=== PATIENT | male | born 1990 | race Caucasian/White ===

== ENCOUNTER 2018-01-02 18:24 | Inpatient (IN) | payer BC, OTHER ==
[~2018-01-02] VITALS: Ht 180.3 cm; Wt 93.0 kg
--- NOTE | 2018-01-03 00:35 | NUR ---
PRE-ADMISSION NOTE Pt seen in intake office. Pt was severely intoxicated and not experiencing any s/s of withdrawal. Pt was unkempt and disheveled. Pt had a steady gait and was A/O X 4. V/S: T:98.5, P:113, RR:18, SPO2:96, BP:156/101. Pt is expectable for admission to the unit.
[2018-01-03] MEDS ORDERED: HYDROXYZINE PAMOATE 25 MG CAPSULE PO PRN (01:00)
[2018-01-03] MEDS ORDERED: MAGNESIUM HYDROXIDE 30 ML LIQUID UDC PO PRN (01:00)
[2018-01-03] MEDS ORDERED: DICYCLOMINE HCL 20 MG TABLET PO PRN (01:00)
[2018-01-03] MEDS ORDERED: IBUPROFEN 400 MG TABLET PO PRN (01:00)
[2018-01-03] MEDS ORDERED: MIRALAX 17 GM POWD.PACK PO PRN (01:00)
[2018-01-03] MEDS ORDERED: LOPERAMIDE HCL 2 MG CAPSULE PO PRN ×2 (01:00)
[2018-01-03] MEDS ORDERED: diphenhydrAMINE 50 MG CAPSULE PO PRN (01:00)
[2018-01-03] MEDS ORDERED: MAG HYDROX/AL HYDROX/SIMETH 30 ML LIQUID UDC PO PRN (01:00)
[2018-01-03] MEDS ORDERED: ACETAMINOPHEN 325 MG TABLET PO PRN (01:00)
[2018-01-03] MEDS ORDERED: BUPRENORPHINE HCL 2 MG TAB.SUBL SL PRN (01:00)
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
[2018-01-03] MEDS: ONDANSETRON ODT 4 MG TAB.RAPDIS SL PRN ×2 (01:32→13:51)
--- NOTE | 2018-01-03 01:32 | NUR ---
PRN ZOFRAN ADMINISTRATION Zofran 4mg SL given for nausea w/ emesis. Pt has had 2 cases of non-projectile non-coffee ground emesis. Will reassess pt in 1 hr.
--- NOTE | 2018-01-03 02:32 | NUR ---
PRN ZOFRAN REASSESSMENT Pt continues to have nausea w/ emesis. Will administer Zofran IM.
[2018-01-03 03:02] LABS: *AMPHETAMINE, URINE POSITIVE (NEGATIVE); *BARBITURATE, URINE NEGATIVE (NEGATIVE); *CANNABINOID, URINE POSITIVE (NEGATIVE); *COCCAINE, URINE NEGATIVE (NEGATIVE); *OPIATE, URINE POSITIVE (NEGATIVE); *PHENCYCLIDINE SCREEN,URINE NEGATIVE (NEGATIVE)
[2018-01-03] MEDS: ONDANSETRON 4 MG/2 ML VIAL IM PRN ×2 (03:18→10:46)
--- NOTE | 2018-01-03 03:18 | NUR ---
PRN ZOFRAN ADMINISTRATION Zofran 4mg IM given for nausea w/ emesis. Will reassess pt in 30 min.
[2018-01-03] MEDS ORDERED: LORAZEPAM 1 MG TABLET PO PRN ×2 (03:30)
[2018-01-03] MEDS ORDERED: LORAZEPAM 2 MG/1 ML VIAL IM PRN (03:30)
--- NOTE | 2018-01-03 03:48 | NUR ---
PRN ZOFRAN REASSESSMENT Pt states not feeling nauseous any longer and no more bouts of emesis. Will continue to monitor pt.
[2018-01-03 04:07] VITALS: BP 139/82
--- NOTE | 2018-01-03 04:13 | NUR ---
CIWA ASSESSMENT CIWA 17. Pt is presenting w/ anxiety, agitation, restlessness, sweats, and tremors. V/S: T: 98.5, P:94, RR:18, SPO2;98, BP:139/82.
--- NOTE | 2018-01-03 04:30 | NUR ---
PRN ATIVAN AND CLONIDINE ADMINISTRATION Ativan 2mg and Clonidine 0.1mg given for anxiety and agitation. CIWA 17. Will reassess pt in 1 hr.
[2018-01-03] MEDS: CLONIDINE HCL 0.1 MG TABLET PO PRN (04:31)
--- NOTE | 2018-01-03 05:30 | NUR ---
PRN ATIVAN AND CLONIDINE REASSESSMENT Pt states that anxiety and agitation has subsided, but he can still feel restless and has racing thoughts. Pt states "I feel tired and will probably fall asleep after a smoke". Will continue to monitor pt.
[2018-01-03] MEDS: METHOCARBAMOL 750 MG TABLET PO PRN (05:52)
--- NOTE | 2018-01-03 05:52 | NUR ---
PRN ROBAXIN ADMINISTRATION Robaxin 750mg given for body aches. Pt states "my whole body hurts and its why I can't relax and fall asleep". Will reassess pt in 1 hr.
--- NOTE | 2018-01-03 06:52 | NUR ---
PRN RADHA REASSESSMENT Pt is in bed w/ his eyes closed. Pt's respirations are unlabored and even.
--- NOTE | 2018-01-03 07:14 | NUR ---
END OF SHIFT NOTE Endorsed pt to oncoming nurse. Pt is a 27 y/o male A/O to person, place, time, and purpose. Pt was admitted for medically supervised withdrawal from Benzodiazepines and Opiates. Pt also has a Methamphetamine use Hx. Pt was intoxicated upon admission, but began to present w/ nausea, anxiety, agitation, and body aches. PRN Zofran SL, Zofran IM, Ativan, Clonidine, and Robaxin were given and noted effective. Pt denies any S/I or H/I. Pts fluid intake was 1050ml and he slept for 0 hrs. Last CIWA 17 @ 0400. COWS assessment not performed. Call light is within reach.
--- NOTE | 2018-01-03 07:40 | NUR ---
START OF SHIFT NOTE Received report from night nurse, 27 year old male admitted for Heroin/Benzo/ Meth withdrawal and patient currently not on any taper but PRN'S available for increased s/s of withdrawal. Per endorsement patient received PRN Zofran SL/Zofran IM, Ativan, Clonidine, Robaxin, and last CIWA-17. Received patient alert awake oriented x4, pacing in the hallway, anxious, agitated, restless, fatigue, nausea, chills, runny nose, bilateral hand tremors noted. All safety measures in place call light within reach. Will cont to monitor.
[2018-01-03 08:00] VITALS: BP 133/91
--- NOTE | 2018-01-03 09:24 | NUR ---
CIWA/COWS ASSESSMENT/PRN ATIVAN SUBUTEX CIWA-14, COWS-14, Patient presented with s/s of withdrawal such as nausea, difficulty sitting still, chills, anxiety, agitation, restless, stomach cramps, heart burn, sweats, bilateral hand tremors. PRN Ativan 1mg PO and Subutex 4mg SL administered as ordered. Will cont to monitor and reassess. Addendum: 01/03/18 at 1107 by JOE RODRÍGUEZ LVN correction- COWS score was-15
--- NOTE | 2018-01-03 10:04 | NUR ---
COWS REASSESSMENT COWS-11, Patient reported Subutex was effective in controlling s/s of withdrawal.
--- NOTE | 2018-01-03 10:24 | NUR ---
CIWA REASSESSMENT CIWA- 12, patient reported feeling less anxious, agitated, and restless, Ativan was effective in controlling s/s of withdrawal.
--- NOTE | 2018-01-03 10:46 | NUR ---
PRN ZOFRAN/MAALOX Patient reported emesis x1, and heartburn. Patient provided with non pharmacological intervention with no relief. PRN Zofran IM, Maalox administered as ordered. Will cont to monitor and reassess.
[2018-01-03] MEDS ORDERED: 4 DAY TAPER BUPRENORPHINE -SERENITY PROTOCOL SL PRN (11:15)
[2018-01-03] MEDS ORDERED: 5 DAY TAPER OF LORAZEPAM -SERENITY PROTOCOL PO PRN (11:15)
--- NOTE | 2018-01-03 11:16 | NUR ---
ZOFRAN AND MAALOX REASSESSMENT Patient reported nausea improved, no emesis, and heart burn subsided.
[2018-01-03 12:00] VITALS: BP 144/90
[2018-01-03] MEDS ORDERED: OXCA150T5 PO (12:21)
[2018-01-03] MEDS ORDERED: GABA600T2 PO (12:21)
[2018-01-03] MEDS ORDERED: BUPR300T52 PO (12:21)
[2018-01-03] MEDS ORDERED: BUPRENORPHINE HCL 2 MG TAB.SUBL SL SCH (13:00)
[2018-01-03] MEDS ORDERED: LORAZEPAM 1 MG TABLET PO SCH (13:00)
[2018-01-03] MEDS: GABAPENTIN 300 MG CAPSULE PO SCH ×2 (13:07→16:37)
--- NOTE | 2018-01-03 13:08 | NUR ---
CIWA/COWS ASSESSMENT CIWA-13, COWS-13, Patient continues to exhibited s/s of withdrawal such as runny nose, fatigue, labile facial expression, nausea, difficulty sitting still, chills, anxiety, agitation, restless, stomach cramps, sweats, bilateral hand tremors. Patient was given scheduled medications.
--- NOTE | 2018-01-03 13:51 | NUR ---
Zofran 4 mg ODT given: Patient had x 2 episodes of emesis while in smoking patio. Patient was discouraged to smoke if he feels nauseated. Patient was medicated with Zofran 4 mg ODT as ordered. Will monitor for effectiveness.
--- NOTE | 2018-01-03 14:15 | NUR ---
AVINASH REASSESSMENT Patient is sleeping calmly in his room, Avinash noted effective. Breathing normal no SOB noted. All safety measures in place.
[2018-01-03 16:00] VITALS: BP 134/74
[2018-01-03] MEDS: LORAZEPAM 1 MG TABLET PO SCH ×2 (16:37→20:55)
[2018-01-03] MEDS: OXCARBAZEPINE 150 MG TABLET PO SCH (16:37)
--- NOTE | 2018-01-03 16:37 | NUR ---
CIWA/COWS ASSESSMENT CIWA-11, COWS-11, Patient continues to exhibited s/s of withdrawal such as labile facial expression, fatigue, nausea, chills, anxiety, agitation, restless, anhedonia, dysphoria, bilateral hand tremors. Patient was given scheduled medications.
--- NOTE | 2018-01-03 19:08 | NUR ---
END OF SHIFT NOTE Gave report to night nurse, patient started on Subutex and Ativan taper tolerated well. During shift patient received PRN Zofran x2 IM and SL, Ativan 1mg PO, Subutex 4mg SL, Maalox noted to be effective. Patient stated Subutex is making him vomiting MD notified. MD discontinued scheduled Subutex taper but PRN'S available if needed. Patient presented with pacing in the hallway, agitated, anxious, restless, emesis, nauseated, sweats, chills, runny nose, heart burn, bilateral hand tremors. Patient able to consumed 100% of his meals. Patient is currently resting in his room comfortably, breathing normal no SOB noted. Encourage PO fluids as tolerated. All safety measures in place. patient endorse to night nurse in stable condition.
--- NOTE | 2018-01-03 19:50 | NUR ---
START OF SHIFT NOTE Rcvd report from outgoing nurse. Pt is a 27 y/o male A/O to person, place, time, and purpose. Pt was admitted for medically supervised withdrawal from Xanax and Heroin. Pt is on a 5 day Ativan taper and was on a 4 day Subutex taper. Pt has been presenting w/ body aches, nausea w/ emesis, sweats, chills, flushing, tremors, anxiety, agitation, irritability, and a flat affect. PRN Zofran was given for nausea w/ emesis. PRN Maalox was given for heartburn. PRN Ativan was given for elevated CIWA. All noted effective by outgoing nurse. PRN Subutex was given and pt became nauseous and had a bout of emesis. Pt was taken off Subutex taper per MD. Last CIWA 11 and COWS 11 @ 1600. Call light is within reach. Pt will continue to be monitored and needs met.
[2018-01-03 19:51] LABS: ETHANOL < 3 MG/DL (0-0)
[2018-01-03 19:56] LABS: ALANINE AMINOTRANSFERASE 138 U/L (16-63); ALKALINE PHOSPHATASE 64 U/L (50-136); AMYLASE 33 U/L (25-115); ASPARTATE AMINOTRANSFERASE 191 U/L (15-37); BASOPHILS # (AUTO) 0.1 K/uL (0.0-8.0); BASOPHILS % (AUTO) 0.8 % (0.0-2.0); BILIRUBIN,TOTAL 0.7 mg/dL (0.2-1.0); CARBON DIOXIDE 32 mmol/L (21-32); CHLORIDE 98 mmol/L (98-107); CREATININE 1.2 mg/dL (0.6-1.3); EOSINOPHILS # (AUTO) 0.3 K/uL (0.0-0.7); EOSINOPHILS % (AUTO) 4.9 % (0.0-7.0); GLUCOSE 92 mg/dL (74-106); HEMATOCRIT 43.2 % (36.7-47.1); HEMOGLOBIN 14.9 g/dL (12.5-16.3); LIPASE 144 U/L (73-393); LYMPHOCYTES % (AUTO) 30.8 % (20.5-51.5); MEAN CORPUSCULAR HEMOGLOBIN 31.8 uug (23.8-33.4); MEAN CORPUSCULAR HGB CONC 34 g/dL (32.5-36.3); MEAN CORPUSCULAR VOLUME 92.3 fL (73.0-96.2); MONOCYTES # (AUTO) 0.6 K/uL (2.0-10.0); MONOCYTES % (AUTO) 9.2 % (0.0-11.0); NEUTROPHILS # (AUTO) 3.6 K/uL (1.8-8.9); NEUTROPHILS % (AUTO) 54.3 % (38.5-71.5); PLATELET COUNT (AUTO) 151 K/uL (152-348); POTASSIUM 3.4 mmol/L (3.5-5.1); RED BLOOD CELL COUNT(AUTO) 4.68 MIL/uL (4.06-5.63); TOTAL PROTEIN, SERUM 7.2 g/dL (6.4-8.2); UREA NITROGEN, BLOOD 11 mg/dL (7-18); WHITE BLOOD COUNT (AUTO) 6.6 K/uL (3.6-10.2)
--- NOTE | 2018-01-03 20:07 | NUR ---
CIWA AND COWS ASSESSMENT CIWA 16 and COWS 11. Pt has been presenting w/ body aches, nausea w/ emesis, sweats, chills, flushing, tremors, anxiety, agitation, irritability, and a flat affect. PRN Zofran was given for nausea w/ emesis.V/S: T:98.2, P:86, RR:14, SPO2:98, BP:136/72.
[2018-01-03 20:28] VITALS: BP 136/72
[2018-01-04 00:10] VITALS: BP 134/63
--- NOTE | 2018-01-04 00:14 | NUR ---
CIWA AND COWS DEFERRED. V/S ASSESSMENT Pt is in bed w/ his eyes closed. V/S: T:98.3, P:84, RR:16, SPO2:98, BP:134/63.
--- NOTE | 2018-01-04 04:08 | NUR ---
CIWA AND COWS DEFERRED. V/S REFUSED Pt is in bed w/ his eyes closed. Pt's respirations are unlabored and even.
--- NOTE | 2018-01-04 07:11 | NUR ---
END OF SHIFT NOTE Endorsed pt to oncoming nurse. Pt is a 27 y/o male A/O to person, place, time, and purpose. Pt was admitted for medically supervised withdrawal from Xanax and Heroin. Pt completed day 1 of a 5 day Ativan taper. Pt continues presenting w/ body aches, nausea w/ emesis, sweats, chills, flushing, tremors, anxiety, agitation, irritability, and a flat affect. Pt denies S/I and H/I. PRN medications were given current shift. Pts fluid intake was 500ml and he slept for 9hrs. Last CIWA 16 and COWS 11 @ 1999. Call light is within reach.
[2018-01-04 08:00] VITALS: BP 134/70
--- NOTE | 2018-01-04 08:15 | NUR ---
START OF SHIFT: Received Pt A/O X 4 laying in bed. He reports nausea,anxiety,restlessness,irritability and body aches. COWS 9 CIWA 9 Ativan taper in progress to manage s/s of w/d. PRN Zofran ODT and PRN Robaxin given as ordered to manage nausea and body aches. Encouraged increased fluids to assist in facilitating detox process. Encouraged group attendance to improve coping skills and prevent relapse. Will continue to monitor and manage s/s of w/d.
[2018-01-04] MEDS ORDERED: TUBERCULIN,PURIF.PROT.DERIV. 5 TU/0.1 ML TEST ID ONE (09:00)
[2018-01-04] MEDS ORDERED: POTASSIUM CHLORIDE 20 MEQ TAB.PRT.SR PO ONE (09:00)
[2018-01-04] MEDS ORDERED: BUPRENORPHINE HCL 2 MG TAB.SUBL SL SCH (09:00)
[2018-01-04] MEDS: LORAZEPAM 1 MG TABLET PO SCH ×4 (09:15→21:19)
[2018-01-04] MEDS: OXCARBAZEPINE 150 MG TABLET PO SCH ×2 (09:16→16:47)
[2018-01-04] MEDS: METHOCARBAMOL 750 MG TABLET PO PRN ×2 (09:16→21:19)
[2018-01-04] MEDS: GABAPENTIN 300 MG CAPSULE PO SCH ×3 (09:16→16:47)
[2018-01-04] MEDS: buPROPion XL 150 MG TAB.SR.24H PO SCH (09:17)
[2018-01-04] MEDS: ONDANSETRON ODT 4 MG TAB.RAPDIS SL PRN ×2 (09:19→23:00)
--- NOTE | 2018-01-04 10:10 | NUR ---
Therapist prompted client to attend group therapy sessions and client stated that he will be attending.
[2018-01-04 12:00] VITALS: BP 112/65
--- NOTE | 2018-01-04 12:15 | NUR ---
COWS 13 CIWA 11 Subutex 4mg Sl administered as ordered to manage s/s of w/d. He reports anxiety,chills,sweats,body aches and fatigue.
[2018-01-04] MEDS ORDERED: 3 DAY TAPER BUPRENORPHINE -SERENITY PROTOCOL SL PRN (13:00)
[2018-01-04] MEDS: BUPRENORPHINE HCL 2 MG TAB.SUBL SL SCH ×2 (13:37→21:21)
[2018-01-04 16:00] VITALS: BP 129/71
--- NOTE | 2018-01-04 18:38 | NUR ---
END OF SHIFT: Pt was started on Subutex taper this afternoon and Ativan taper continues to manage s/s of w/d which include anxiety,restlessness,body aches,nausea and irritability. Last COWS 11 CIWA 10. He stayed in bed most of shift and was compliant with increased fluids. He refused PPD. He stated he felt too bad to go to groups today but will try to attend tomorrow. Will pass shift report to oncoming night nurse.
[2018-01-04 20:00] VITALS: BP 127/70
--- NOTE | 2018-01-04 20:00 | NUR ---
Start of shift Patient is a 27 year old male admitted on 01/03/2018. Patient is here at [facility] for medically supervision of Xanax and heroin withdrawal. Patient is on a 4 day Subutex taper and 5 day Ativan taper. Patients last COWS=11 and CIWA=10. Per endorsement patient had Zofran and Robaxin and it was well tolerated. Medication was effective per nurse staff. Patient is on fall and seizure precautions. Upon rounds patient was noted in room lying in bed. Reviewed 2100 medications with patient and he verbalized understanding and asked for PRN Robaxin. Patient presents with withdrawal symptoms as follow: anxiety, agitation, body aches, sweats, tremors and nausea. Patient was noted withdrawn, depressed, and poor eye contact. Respirations are even and unlabored. Patient denies any pain. Safety measures in place, bed locked in low position, side rails up x2, and call light within reach. Will continue to monitor.
--- NOTE | 2018-01-04 20:00 | NUR ---
CIWA and COWS Assessment Patient is presenting with symptoms of withdrawal as follow: sweats, body aches, anxiety, agitation and nausea. Patients CIWA= 9 and COWS= 10. Respirations are even and unlabored. Safety measures are in place and will continue to monitor.
--- NOTE | 2018-01-04 21:19 | NUR ---
PRN Robaxin 750 mg Patient is experiencing body aches. Robaxin 750 mg was administered. Respirations are even and unlabored. Patient tolerated well medication. Safety measures are in place and will continue to monitor.
--- NOTE | 2018-01-04 22:20 | NUR ---
CIWA /COWS/Robaxin 750 mg Reassessment Patient is presenting with symptoms of withdrawal as follow: sweats, body aches, anxiety, agitation and nausea and vomiting. Patient vomited medication Ativan, Subutex, and Robaxin. Patients CIWA= 16 and COWS= 15. Charge nurse and MD notified. Medication was not effective. Respirations are even and unlabored. Safety measures are in place and will continue to monitor.
[2018-01-04] MEDS ORDERED: LORAZEPAM 1 MG TABLET PO ONE (23:00)
[2018-01-04] MEDS ORDERED: BUPRENORPHINE HCL 2 MG TAB.SUBL SL ONE (23:00)
--- NOTE | 2018-01-04 23:00 | NUR ---
One time order Ativan 1mg and PRN Zofran Patient vomited medication and MD placed a onetime dose of Ativan 1mg and Subutex 2mg. Patient decline Subutex 2mg. Ativan 1mg and Zofran was administered and tolerated well. Respirations are even and unlabored. Safety measures are in place and will continue to monitor.
[2018-01-05] VITALS: BP 113/77
--- NOTE | 2018-01-05 | NUR ---
CIWA and COWS Deferred Patient was noted in bed resting with eyes closed, breathing even and unlabored. Per protocol COWS and CIWA is to be assessed while awake. Safety measures in place, bed locked in low position, side rails up x2, and call light within reach. Will continue to monitor.
--- NOTE | 2018-01-05 | NUR ---
PRN Zofran Reassessment Patient noted in bed lying with eyes closed. Medication noted to be effective. Patient did not experience another episode of emesis. Respirations are even and unlabored. Safety measures are in place and will continue to monitor.
[2018-01-05 04:00] VITALS: BP 108/86
--- NOTE | 2018-01-05 04:00 | NUR ---
CIWA and COWS Deferred Patient was noted in bed resting with eyes closed, breathing even and unlabored. Per protocol COWS and CIWA is to be assessed while awake. Safety measures in place. Will continue to monitor.
[2018-01-05 04:08] LABS: HEPATITIS B SURFACE AG Negative (Negative)
--- NOTE | 2018-01-05 07:19 | NUR ---
End of shift Patient is a 27 year old male admitted on 01/03/2018. Patient is here at [facility] for medically supervision of Xanax and heroin withdrawal. Patient is on a 4 day Subutex taper and 5 day Ativan taper. Patients last COWS=15 and CIWA=16 at 2220. Patient had one episode of emesis after 2100 medication administration. MD was notified and he ordered a onetime dose of Ativan 1mg and Subutex 2mg.Ativan was given and Subutex was decline per patient. Patient had PRN Zofran and Robaxin and it was well tolerated. Medication was noted to be effective. Patient had low Potassium of 3.4 and will endorse to nurse staff to follow up. Patient is on fall and seizure precautions. Patient slept for 8 hours and had a total intake of 2,850 ml. Patient voided x1 and had no bowel movements. Respirations are even and unlabored. Safety measures in place, bed locked in low position, side rails up x2, and call light within reach. Will endorse to day shift.
--- NOTE | 2018-01-05 07:30 | NUR ---
Start of Shift Egg Candler received report on 27 year old male admitted to [facility] on 01/03/18 for medical management of Benzodiazepine and Opiate withdrawals. Pt endorses NKA, full code and regular diet. PMH of acute renal failure and Hepatitis C. Pt currently on a Subutex and Ativan taper with last CIWA 16 and COWS 15, per NOC report. Pt was administered Robaxin(myalgia) and Zofran(emesis) as PRN medications on NOC, per report. Egg Candler encounters pt in hallway. Pt is A/O x4 and makes his needs known. Linear thought process and clear speech pattern. Blunted affect and depressed mood. Pt complains of nausea, myalgia, chills, anxiety and pt is diaphoretic and tremulous. Bed in low position with wheels locked and side rails up x2. Will continue to monitor, support and encourage according to plan of care.
[2018-01-05 08:00] VITALS: BP 114/86
--- NOTE | 2018-01-05 08:49 | NUR ---
Therapist prompted client to attend group therapy.
[2018-01-05] MEDS ORDERED: BUPRENORPHINE HCL 2 MG TAB.SUBL SL SCH (09:00)
[2018-01-05] MEDS ORDERED: POTASSIUM CHLORIDE 20 MEQ TAB.PRT.SR PO ONE (09:00)
[2018-01-05] MEDS: ONDANSETRON ODT 4 MG TAB.RAPDIS SL PRN (09:00)
--- NOTE | 2018-01-05 09:00 | NUR ---
PRN Zofran Pt requests medication prior to medication. No emesis noted. Business Continuity Global Director administered Zofran per MD order with pt tolerating well. Will continue to monitor, support and encourage according to plan of care.
--- NOTE | 2018-01-05 09:30 | NUR ---
CIWA 14/COWS 16 Pt is diaphoretic, tremulous, anxious and restless with complaints of nausea, chills and myalgia. Pt with a restricted affect and depressed mood. Will continue to monitor, support and encourage according to plan of care.
--- NOTE | 2018-01-05 09:30 | NUR ---
PRN Re-Assessment Pt endorse relief nausea and has had no emesis. Will administer medications as ordered, per pt request. Will continue to monitor, support and encourage according to plan of care.
[2018-01-05] MEDS: OXCARBAZEPINE 150 MG TABLET PO SCH ×2 (09:52→17:28)
[2018-01-05] MEDS: BUPRENORPHINE HCL 2 MG TAB.SUBL SL SCH ×2 (09:53→20:43)
[2018-01-05] MEDS: GABAPENTIN 300 MG CAPSULE PO SCH ×3 (09:53→17:28)
[2018-01-05] MEDS: buPROPion XL 150 MG TAB.SR.24H PO SCH (09:53)
[2018-01-05] MEDS: LORAZEPAM 1 MG TABLET PO SCH ×3 (09:53→20:43)
[2018-01-05 12:00] VITALS: BP 134/67
--- NOTE | 2018-01-05 12:00 | NUR ---
ANASTASIYAWA 12/COWS 14 Pt is diaphoretic, tremulous, anxious, restless with piloerection of the skin and complains of nausea, myalgia and chills. Will continue to monitor, support and encourage according to plan of care.
--- NOTE | 2018-01-05 13:44 | NUR ---
Therapist prompted client to attend all group therapy sessions.
[2018-01-05] MEDS: METHOCARBAMOL 750 MG TABLET PO PRN (15:26)
--- NOTE | 2018-01-05 15:26 | NUR ---
MARIA DE JESUS Figueroa Pt complains of myalgia and requests medication. Hvac Instructor administered medication per order with pt tolerating well. Will continue to monitor, support and encourage according to plan of care
--- NOTE | 2018-01-05 16:26 | NUR ---
PRN Re-Assessment Pt endorse relief, stating, " I am feeling better." Will continue to monitor, support and encourage according to plan of care.
[2018-01-05 16:30] VITALS: BP 147/89
--- NOTE | 2018-01-05 16:30 | NUR ---
CIWA 9/COWS 13 Pt is diaphoretic, tremulous, anxious and restless with complaints of myalgia, chills and nausea. Will continue to monitor, support and encourage according to plan of care.
--- NOTE | 2018-01-05 19:27 | NUR ---
End of Shift Embossed Or Impressed Lettering Painter provided report on 27 year old male admitted to [facility] on 01/03/18 for medical management of Benzodiazepine and Opiate withdrawals. Pt endorses NKA, full code and regular diet. PMH of acute renal failure and Hepatitis C. Pt currently on a Subutex and Ativan taper with last CIWA 9 and COWS 13. Pt was administered Robaxin(myalgia) and Zofran(nausea) as PRN medications. Pt is A/O x4 and makes his needs known. [place] and slow thought process, pre-occupied, and clear speech pattern. Blunted affect and depressed mood. Pt complains of nausea, myalgia, chills, anxiety and pt is diaphoretic and tremulous. Pt has attended group and participates in treatment plan. Bed in low position with wheels locked and side rails up x2.
--- NOTE | 2018-01-05 19:30 | NUR ---
Start of Shift Note Received a 27 y/o male px, admitted for medically supervised withdrawal from Heroin and Xanax. Px is also using methamphetamine. He was placed on 4 day Ativan taper and 4 day Subutex taper started on 01/04/2018. Px is tolerating them. Last reported COWS 13 and CIWA 9 by AM shift nurse. During the rounds at 1930, px is awake on bed in right side lying position. Px appears anxious and depressed. He has flat affect and poor eye contact. He is disheveled and unshaven. Few snacks and drinks noted on top of the bed side table. Px stated that his anxiety is 9/10. He also complains of generalized body aches of 7/10, sweats, and stuffy nose. Bilateral hand tremors are noted. Bed on lowest position, side rails up 2x and call light within reach. Well continue to monitor
[2018-01-05 20:00] VITALS: BP 148/85
--- NOTE | 2018-01-05 20:00 | NUR ---
COWS 11 and CIWA 16 Upon assessment, ox appears anxious and depressed. He has flat affect and poor eye contact. Px stated that his anxiety is 9/10. He also complains of generalized body aches of 7/10, sweats, and stuffy nose. Bilateral hand tremors are noted. OH= 98. will continue to monitor
[2018-01-05] MEDS: CLONIDINE HCL 0.1 MG TABLET PO PRN (20:43)
--- NOTE | 2018-01-05 20:43 | NUR ---
PRN Clonidine Px received Clonidine 0.1 mg PO for increased anxiety. will continue to monitor
--- NOTE | 2018-01-05 21:45 | NUR ---
PRN Clonidine Reassessment Px stated that his anxiety improved a little bit form 12/28 to 10/27. will continue to monitor
[2018-01-06] VITALS: BP 132/80
--- NOTE | 2018-01-06 | NUR ---
COWS and CIWA deferred COWS and CIWA deferred due to the px is asleep. To assess if the px is awake per doctor's order. will continue to monitor
--- NOTE | 2018-01-06 03:00 | NUR ---
COWS 12 and CIWA 15 Px woke up, still appears anxious and depressed. He has flat affect and poor eye contact. Px stated that his anxiety is 9/10. Generalized body aches of 7/10, sweats, and stuffy nose. Bilateral hand tremors are noted. VA= 92. will continue to monitor
[2018-01-06] MEDS: METHOCARBAMOL 750 MG TABLET PO PRN ×2 (03:26→20:15)
--- NOTE | 2018-01-06 03:26 | NUR ---
PRN Robaxin and Vistaril Px received Robaxin 750 mg PO for body aches of 7/10 and Vistaril 50 mg PO for anxiety. will continue to monitor
[2018-01-06 04:00] VITALS: BP 129/83
--- NOTE | 2018-01-06 04:00 | NUR ---
COWS 12 and CIWA 15 On assessment. Px still appears anxious and depressed. He has flat affect and poor eye contact. Px stated that his anxiety is 7/10. Generalized body aches of 7/10, sweats, and stuffy nose. Bilateral hand tremors are noted. will continue to monitor
--- NOTE | 2018-01-06 04:30 | NUR ---
MARIA DE JESUS Figueroa and Vistaril reassessment On assessment, px is still awake but about to sleep. He is on bed in left side lying position. He states that his body aches from 7/10 to 4-5/10 and his anxiety improved from 7/10 to 5/10. will continue to monitor
--- NOTE | 2018-01-06 07:05 | NUR ---
End of Shift Note During the shift at 2042, px received Clonidine 0.1 mg PO for increased anxiety. It was effective. At 325, px woke up and received Robaxin 750 mg PO for body aches of 7/10 and Vistaril 50 mg PO for anxiety. They were effective. Last COWS 12 and CIWA 15. Oral intake of 1000 ml, voided 3x, No BM. Px slept for 5.5 hours. Bed on lowest position, side rails up 2x and call light within reach. Px endorsed to AM shift nurse.
--- NOTE | 2018-01-06 07:30 | NUR ---
Start of Shift Spark Plug Tester received report on 27 year old male admitted to [facility] on 01/03/18 for medical management of Benzodiazepine and Opiate withdrawals. Pt endorses NKA, full code and regular diet. PMH of acute renal failure and Hepatitis C. Pt currently on a Subutex and Ativan taper with last CIWA 15 and COWS 12, per NOC report. Pt was administered Robaxin(myalgia), Vistaril(anxiety) and Clonidine(anxiety) as PRN medications on NOC, per report. Spark Plug Tester encounters pt in pts room with pt resting with eyes closed. Even and unlabored respirations noted. Bed in low position with wheels locked and side rails up x2. Will continue to monitor, support and encourage according to plan of care. Bed in low position with wheels locked and side rails up x2. Will continue to monitor, support and encourage according to plan of care.
[2018-01-06 08:00] VITALS: BP 118/68
--- NOTE | 2018-01-06 08:00 | NUR ---
CIWA 11/COWS 11 Pt is diaphoretic, tremulous, anxious, restless, irritable, and has complaints of nausea and chills and myalgia. Will continue to monitor, support and encourage according to plan of care.
[2018-01-06] MEDS ORDERED: BUPRENORPHINE HCL 2 MG TAB.SUBL SL SCH ×2 (09:00)
[2018-01-06] MEDS: OXCARBAZEPINE 150 MG TABLET PO SCH ×2 (09:04→17:23)
[2018-01-06] MEDS: LORAZEPAM 1 MG TABLET PO SCH ×2 (09:04→20:16)
[2018-01-06] MEDS: buPROPion XL 150 MG TAB.SR.24H PO SCH (09:04)
[2018-01-06] MEDS: GABAPENTIN 300 MG CAPSULE PO SCH ×3 (09:04→17:23)
[2018-01-06 12:00] VITALS: BP 127/64
--- NOTE | 2018-01-06 12:00 | NUR ---
CIWA 12/COWS 12 Pt is irritable, anxious, restless, diaphoretic with fine tremors and complaints of nausea. Will continue to monitor, support and encourage according to plan of care.
[2018-01-06 15:02] LABS: BASOPHILS # (AUTO) 0.1 K/uL (0.0-8.0); BASOPHILS % (AUTO) 1.2 % (0.0-2.0); EOSINOPHILS # (AUTO) 0.5 K/uL (0.0-0.7); EOSINOPHILS % (AUTO) 6.4 % (0.0-7.0); HEMATOCRIT 41.6 % (36.7-47.1); HEMOGLOBIN 14.1 g/dL (12.5-16.3); LYMPHOCYTES # (AUTO) 2.2 K/uL (20.0-40.0); LYMPHOCYTES % (AUTO) 26.3 % (20.5-51.5); MEAN CORPUSCULAR HEMOGLOBIN 32.1 uug (23.8-33.4); MEAN CORPUSCULAR HGB CONC 34 g/dL (32.5-36.3); MEAN CORPUSCULAR VOLUME 94.5 fL (73.0-96.2); MONOCYTES # (AUTO) 0.7 K/uL (2.0-10.0); MONOCYTES % (AUTO) 8.6 % (0.0-11.0); NEUTROPHILS # (AUTO) 4.8 K/uL (1.8-8.9); NEUTROPHILS % (AUTO) 57.5 % (38.5-71.5); PLATELET COUNT (AUTO) 167 K/uL (152-348); WHITE BLOOD COUNT (AUTO) 8.4 K/uL (3.6-10.2)
[2018-01-06 15:24] LABS: BILIRUBIN,TOTAL 0.2 mg/dL (0.2-1.0); CREATININE 1.2 mg/dL (0.6-1.3); POTASSIUM 4.3 mmol/L (3.5-5.1); TOTAL PROTEIN, SERUM 6.9 g/dL (6.4-8.2)
[2018-01-06 16:00] VITALS: BP 137/79
--- NOTE | 2018-01-06 16:00 | NUR ---
CIWA 14/COWS 10 Pt is anxious, irritable and restless with complaints of nausea and chills and myalgia. Will continue to monitor, support and encourage according to plan of care.
--- NOTE | 2018-01-06 19:39 | NUR ---
End of Shift Authorization Representative provided report on 27 year old male admitted to [facility] on 01/03/18 for medical management of Benzodiazepine and Opiate withdrawals. Pt endorses NKA, full code and regular diet. PMH of acute renal failure and Hepatitis C. Pt currently on a Subutex and Ativan taper with last CIWA 14 and COWS 10. Pt not administered any PRN medications this shift. Pt is A/O x4 and able to make needs known. Pt with a linear thought process and clear speech pattern. Pt with an angry affect and anxious mood. Pt with tremors, diaphoresis, anxiety and chills. Pt has been irritable and agitated about not getting Ativan. Poor frustration tolerance and lacks insight. Bed in low position with wheels locked and side rails up x2.
--- NOTE | 2018-01-06 19:40 | NUR ---
Start of Shift Note Received a 27 y/o male px, admitted for medically supervised withdrawal from Heroin and Xanax. Px is also using methamphetamine. He was placed on 4 day Ativan taper and 4 day Subutex taper started on 01/04/2018. Px is tolerating them. Last reported COWS 10 and CIWA 14 by AM shift nurse. During the rounds at 1940, jarett is awake inside his room, sitting on the edge of the bed. Px appears anxious and depressed. He has flat affect and poor eye contact. He is disheveled and unshaven. Snacks and drinks noted on top of the bed side table. Px states that his anxiety is 10/10 and has body aches of 10/10. No moaning, crying or wincing noted. He also complains of sweats, and stuffy nose. Bilateral hand tremors are noted. Bed on lowest position, side rails up 2x and call light within reach. Well continue to monitor
[2018-01-06 20:00] VITALS: BP 137/80
--- NOTE | 2018-01-06 20:00 | NUR ---
COWS 12 and CIWA 13 On assessment. Px appears anxious and depressed. He has flat affect and poor eye contact. He stated that his anxiety is 10/10 with generalized body aches of 10/10, runny nose and teary eyes. Bilateral hand tremors are noted. will continue to monitor
[2018-01-06] MEDS: CLONIDINE HCL 0.1 MG TABLET PO PRN (20:15)
--- NOTE | 2018-01-06 20:15 | NUR ---
PRN medications Px received Robaxin 750 mg PO for body aches of 10/10 as reported and Clonidine 0.1 mg PO for anxiety.to reassess after an hour
--- NOTE | 2018-01-06 21:15 | NUR ---
PRN Robaxin and Clonidine reassessment Px states that his body aches improved form 01/27 to 6-10/27 and his anxiety improved from 01/27 to 10/27. will continue to monitor
[2018-01-07] VITALS: BP 118/80
[2018-01-07 04:00] VITALS: BP 121/83
--- NOTE | 2018-01-07 07:05 | NUR ---
End of Shift Note During the shift at 2014, px received Clonidine 0.1 mg PO for increased anxiety and Robaxin 750 mg PO for body aches of 01/27. They were effective. Oral intake of 1200 ml, voided 3x, No BM. Px slept for 8 hours. Last COWS 12 and CIWA 13. Bed on lowest position, side rails up 2x and call light within reach. Px endorsed to AM shift nurse.
--- NOTE | 2018-01-07 07:30 | NUR ---
START OF SHIFT Pt 27 y/o male admitted for medically supervised withdrawal from opiates. Pt received in room on bed with eyes closed resting. Pt alert and oriented to name, place, and time. Perrla. Skin warm and moist to touch. Respirations even and unlabored. Appears disheveled and unkempt. Clothes scattered throughout the room. Encouraged to maintain hygiene. Bilateral hand tremors. Complaints of intermittent chills and perspiration, body aches, and discomfort. Anxious and restless. Fidgety. Pressured speech noted. It was reported that pt slept for 8 hours last night. Last cows=12 ciwa=13 @ 0000. Pt is on a 4 day subutex taper and is on day 4. Pt also on a 4 day ativan taper and is on day 4. Bed on lowest position with side rails x2 up for safety. Call light within reach.
[2018-01-07 08:00] VITALS: BP 116/78
--- NOTE | 2018-01-07 08:00 | NUR ---
COWS CIWA ASSESSMENT cows=10 ciwa=10. Bilateral hand tremors noted. Anxious and restless. Irritable. Short abrupt responses. Complaints of generalized discomfort.
[2018-01-07] MEDS: GABAPENTIN 300 MG CAPSULE PO SCH ×3 (08:29→16:16)
[2018-01-07] MEDS: buPROPion XL 150 MG TAB.SR.24H PO SCH (08:30)
[2018-01-07] MEDS: OXCARBAZEPINE 150 MG TABLET PO SCH ×2 (08:30→16:16)
[2018-01-07] MEDS ORDERED: BUPRENORPHINE HCL 2 MG TAB.SUBL SL SCH (09:00)
[2018-01-07 12:00] VITALS: BP 120/82
--- NOTE | 2018-01-07 12:00 | NUR ---
COWS CIWA ASSESSMENT cows=6 ciwa=7. Anxious and restless. Agitated and irritable. Pressured speech. Bilateral hand tremors. Complaints of generalized discomfort.
[2018-01-07] MEDS ORDERED: GABA-534 PO (14:46)
[2018-01-07] MEDS ORDERED: OXCA150T5 PO (14:46)
[2018-01-07] MEDS ORDERED: BUPR-96 PO (14:46)
[2018-01-07 16:00] VITALS: BP 130/80
--- NOTE | 2018-01-07 16:00 | NUR ---
CIWA COWS ASSESSMENT cows=6 ciwa=7. Bilateral hand tremors noted. Complaints of generalized discomfort. Anxious and restless. Easily irritable and agitated.
--- NOTE | 2018-01-07 19:07 | NUR ---
END OF SHIFT Pt 27 y/o male admitted for medically supervised withdrawal from opiates. Pt alert and oriented to name, place, and time. Perrla. Skin warm to touch. Respirations even and unlabored. Appears disheveled and unkempt. Drink bottles scattered throughout the room. Encouraged to maintain hygiene. Anxious and restless. Very irritable today. Pacing. Hard to redirect at times. Pt is scheduled to be discharged tomorrow. Isolative with minimal peer interaction. Pt did not attend group activity. Medication compliant. Pt is on a 4 day subutex taper and is on day 4. Pt also on a subutex taper and is on day 4. Last cows=6 ciwa=7. Bed on lowest position with side rails x2 up for safety. Call light within reach.
--- NOTE | 2018-01-07 19:08 | NUR ---
Start of shift note Received report from day shift nurse. Pt is a 27 yo male, A+Ox4, presenting to [facility] for medically supervised Benzo/Opiate withdrawal. Pt was also using methamphetamines. Pt noted with agitation, anxiety, and restlessness. Pt has HX of Hepatitis C, Seizure, and acute kidney failure which will be monitored during shift. Pt has completed 4 day Subutex and 4 day Ativan tapers, tolerated well, and is due for discharge tomorrow. Respirations even and unlabored. Will continue to monitor.
[2018-01-07 20:11] VITALS: BP 151/76
--- NOTE | 2018-01-07 20:11 | NUR ---
COWS and CIWA Assessment COWS: 5 and CIWA: 5. Pt noted with pulse 89, restlessness, enlarged pupils, fine tremors, anxiety, and agitation. Respirations even and unlabored. Will continue to monitor.
[2018-01-07] MEDS: CLONIDINE HCL 0.1 MG TABLET PO PRN (20:44)
[2018-01-07] MEDS: METHOCARBAMOL 750 MG TABLET PO PRN (20:44)
--- NOTE | 2018-01-07 20:44 | NUR ---
PRN Robaxin and Clonidine Pt c/o general body aches and anxiety. PRN Robaxin and Clonidine given and tolerated well. Will reassess within 1 HR. Will continue to monitor.
--- NOTE | 2018-01-07 21:40 | NUR ---
PRN Robaxin and Clonidine Reassessment Medications effective. Pt expresses reduction of generalized body aches and anxiety. No s/s of ASE noted at this time. Respirations even and unlabored. Will continue to monitor.
--- NOTE | 2018-01-08 00:46 | NUR ---
V/S refused and COWS and CIWA assessment deferred for sleep. Respirations even and unlabored. Will continue to monitor.
--- NOTE | 2018-01-08 04:55 | NUR ---
V/S refused and COWS and CIWA assessment deferred for sleep. Respirations even and unlabored. Will continue to monitor.
--- NOTE | 2018-01-08 07:00 | NUR ---
End of shift note Pt was continuously noted with restlessness, anxiety, and agitation. Pt remained in room for majority of shift except to get food from kitchen and to go smoke on smoking patio. Pt remained compliant and cooperative with all aspects of treatment. Pt was given PRN Robaxin and Clonidine @2043. Pt has completed 4 day Ativan and 4 day Subutex tapers, tolerated well, and is due for discharge today. Pt slept for a total of 8 HRS. Last COWS: 5 and Last CIWA: 5 @2010. Respirations even and unlabored. Will endorse to day shift nurse.
[2018-01-08 08:00] VITALS: BP 119/66
--- NOTE | 2018-01-08 08:00 | NUR ---
CIWA 6/COWS 6 Pt is anxious, restless, with fine tremors and moist skin. Will continue to monitor, support and encourage according to plan of care.
--- NOTE | 2018-01-08 08:00 | NUR ---
Start of Shift Sow Farm Manager received report on 27 year old male admitted to [facility] on 01/03/18 for medical management of Benzodiazepine and Opiate withdrawals. Pt endorses NKA, full code and regular diet. PMH of acute renal failure and Hepatitis C. Pt has completed a Subutex and Ativan taper with last CIWA 5 and COWS 5, per NOC report. Pt was administered Robaxin(myalgia) and Clonidine(anxiety) as PRN medications on NOC, per report. Sow Farm Manager encounters pt in hallway. Pt is A/O x4 and makes his needs known. Linear thought process and clear speech pattern. Flat affect with congruent mood. Pt is irritable about discharge RTC location. Pt wants to be closer to home, lacks insight. Pt is anxious and restless, with fine tremors and moist skin. Bed in low position with wheels locked and side rails up x2. Will continue to monitor, support and encourage according to plan of care.
[2018-01-08] MEDS: OXCARBAZEPINE 150 MG TABLET PO SCH (09:06)
[2018-01-08] MEDS: buPROPion XL 150 MG TAB.SR.24H PO SCH (09:06)
[2018-01-08] MEDS: GABAPENTIN 300 MG CAPSULE PO SCH (09:06)
--- NOTE | 2018-01-08 09:49 | NUR ---
Discharge Assessment Pt is A/O x4 and able to make needs known. Pt with a concrete and slow thought process, pre-occupied. Pt with a clear speech pattern. Blunted affect and depressed mood. Pt is irritable about where he is discharging to, because of distance from his home. Pt lacks insight and motivation. Pt currently denies SI/HI or A/VH. Pt is cooperative and polite. Anxious and restless, pt rocks and taps foot. Fnp educated pt on importance of continued sobriety and need for continued follow-up care. Fnp educated pt on discharge educational material, discharge medications and discharge packet. Pt was educated on name, route, dose, time and indication of all prescribed medications, prescriptions provided in discharge packet. Pt provided with discharge educational material and copies of all discharge paperwork. Pt denies any further comments, questions or concerns. Pt had all belongings returned and was provided with discharge packet. Pt picked up in lobby by private transportation, to be transported to [facility]. Addendum: 01/08/18 at 1007 by EDMAR DELVALLE RN Pt VS stable and last CIWA 6 and COWS 6.
== END 2018-01-08 09:49 | disposition other institution (70) | DRG 895 ==
LOC: SRC 01-03 00:08
PROVIDERS: ADMIT Internal Medicine; ATTEND Internal Medicine
PROC: HZ2ZZZZ Detoxification Services for Substance Abuse Treatment (ICD-10-PCS; principal; 2018-01-03)
PROC: HZ41ZZZ Group Counseling for Substance Abuse Treatment, Behavioral (ICD-10-PCS; 2018-01-04)
PROC: HZ31ZZZ Individual Counseling for Substance Abuse Treatment, Behavioral (ICD-10-PCS; 2018-01-05)
DX: F13.230 Sedative, hypnotic or anxiolytic dependence with withdrawal, uncomplicated (principal); F31.60 Bipolar disorder, current episode mixed, unspecified; F11.23 Opioid dependence with withdrawal; F15.229 Other stimulant dependence with intoxication, unspecified; F17.210 Nicotine dependence, cigarettes, uncomplicated; E87.6 Hypokalemia; Z59.0 Homelessness; Z91.89 Other specified personal risk factors, not elsewhere classified; F41.9 Anxiety disorder, unspecified; B19.20 Unspecified viral hepatitis C without hepatic coma
CPT/HCPCS: 36415; 80307; 80324; 80349; 80361; 83690; 83735; 84443; 85025; 86592; 86705; 86803; 87340; 87806; A4663; G0480; J2405; Q0162

== ENCOUNTER 2018-04-18 16:53 | Inpatient (IN) | payer BC, OTHER ==
[~2018-04-18] VITALS: Ht 182.9 cm; Wt 95.3 kg
[~2018-04-18 16:53] MED LIST: BUPR-96 PO; GABA-534 PO; OXCA150T5 PO
[2018-04-18 17:30] VITALS: BP 143/79
[2018-04-18] MEDS ORDERED: DIAZEPAM 10 MG TABLET PO PRN ×2 (17:45)
[2018-04-18] MEDS ORDERED: BUPRENORPHINE HCL 2 MG TAB.SUBL SL PRN (17:45)
[2018-04-18] MEDS ORDERED: ONDANSETRON ODT 4 MG TAB.RAPDIS SL PRN (17:45)
[2018-04-18] MEDS ORDERED: DIAZEPAM 5 MG TABLET PO PRN (17:45)
[2018-04-18] MEDS ORDERED: IBUPROFEN 600 MG TABLET PO PRN (17:45)
[2018-04-18] MEDS ORDERED: ACETAMINOPHEN 325 MG TABLET PO PRN (17:45)
[2018-04-18] MEDS ORDERED: diphenhydrAMINE 50 MG CAPSULE PO PRN (17:45)
[2018-04-18] MEDS ORDERED: LOPERAMIDE HCL 2 MG CAPSULE PO PRN ×2 (17:45)
[2018-04-18] MEDS ORDERED: LORAZEPAM 2 MG/1 ML VIAL IM PRN (17:45)
[2018-04-18] MEDS ORDERED: MIRALAX 17 GM POWD.PACK PO PRN (17:45)
[2018-04-18] MEDS ORDERED: METHOCARBAMOL 750 MG TABLET PO PRN (17:45)
[2018-04-18] MEDS ORDERED: MAG HYDROX/AL HYDROX/SIMETH 30 ML LIQUID UDC PO PRN (17:45)
[2018-04-18] MEDS ORDERED: CLONIDINE HCL 0.1 MG TABLET PO PRN (17:45)
[2018-04-18] MEDS ORDERED: HYDROXYZINE PAMOATE 25 MG CAPSULE PO PRN (17:45)
[2018-04-18] MEDS ORDERED: SRC OPIOID WITHDRAWAL ADMITTING PROTOCOL XX PRN (17:45)
[2018-04-18] MEDS ORDERED: ONDANSETRON 4 MG/2 ML VIAL IM PRN (17:45)
[2018-04-18] MEDS ORDERED: MAGNESIUM HYDROXIDE 30 ML LIQUID UDC PO PRN (17:45)
[2018-04-18] MEDS ORDERED: SRC BENZO WITHDRAWAL ADMITTING PROTOCOL XX PRN (17:45)
[2018-04-18 17:54] LABS: *AMPHETAMINE, URINE NEGATIVE (NEGATIVE); *BARBITURATE, URINE NEGATIVE (NEGATIVE); *CANNABINOID, URINE POSITIVE (NEGATIVE); *COCCAINE, URINE NEGATIVE (NEGATIVE); *OPIATE, URINE POSITIVE (NEGATIVE); *PHENCYCLIDINE SCREEN,URINE NEGATIVE (NEGATIVE)
[2018-04-18] MEDS ORDERED: OXCA300T4 PO (19:11)
[2018-04-18] MEDS ORDERED: GABA-534 PO (19:11)
[2018-04-18 19:16] LABS: BASOPHILS # (AUTO) 0.1 K/uL (0.0-8.0); BASOPHILS % (AUTO) 1.2 % (0.0-2.0); EOSINOPHILS # (AUTO) 0.2 K/uL (0.0-0.7); EOSINOPHILS % (AUTO) 1.6 % (0.0-7.0); HEMATOCRIT 44.9 % (36.7-47.1); HEMOGLOBIN 15.5 g/dL (12.5-16.3); LYMPHOCYTES # (AUTO) 2.8 K/uL (20.0-40.0); LYMPHOCYTES % (AUTO) 26.5 % (20.5-51.5); MEAN CORPUSCULAR HGB CONC 35 g/dL (32.5-36.3); MEAN CORPUSCULAR VOLUME 92.6 fL (73.0-96.2); MONOCYTES # (AUTO) 0.6 K/uL (2.0-10.0); MONOCYTES % (AUTO) 5.5 % (0.0-11.0); NEUTROPHILS # (AUTO) 6.8 K/uL (1.8-8.9); NEUTROPHILS % (AUTO) 65.2 % (38.5-71.5); PLATELET COUNT (AUTO) 236 K/uL (152-348); RED BLOOD CELL COUNT(AUTO) 4.85 MIL/uL (4.06-5.63); WHITE BLOOD COUNT (AUTO) 10.4 K/uL (3.6-10.2)
[2018-04-18 19:25] LABS: ALANINE AMINOTRANSFERASE 58 U/L (16-63); ALKALINE PHOSPHATASE 62 U/L (50-136); ASPARTATE AMINOTRANSFERASE 31 U/L (15-37); BILIRUBIN,TOTAL 0.4 mg/dL (0.2-1.0); CARBON DIOXIDE 31 mmol/L (21-32); CHLORIDE 98 mmol/L (98-107); CREATININE 1.1 mg/dL (0.6-1.3); GLUCOSE 114 mg/dL (74-106); MAGNESIUM 2.3 mg/dL (1.8-2.4); POTASSIUM 3.7 mmol/L (3.5-5.1); TOTAL PROTEIN, SERUM 7.9 g/dL (6.4-8.2); UREA NITROGEN, BLOOD 14 mg/dL (7-18)
[2018-04-18 19:29] LABS: ETHANOL < 3 MG/DL (0-0)
[2018-04-18 19:57] LABS: THYROID STIMULATING HORMONE 16.927 mIU/mL (0.358-3.740)
[2018-04-18 20:55] VITALS: BP 131/81
[2018-04-19 00:46] VITALS: BP 122/67
[2018-04-19 08:00] VITALS: BP 128/71
[2018-04-19] MEDS: MULTIVITAMINS,THERAPEUTIC TABLET PO SCH (08:55)
[2018-04-19] MEDS ORDERED: TUBERCULIN,PURIF.PROT.DERIV. 5 TU/0.1 ML TEST ID ONE (09:00)
[2018-04-19 12:00] VITALS: BP 131/78
[2018-04-19] MEDS: OXCARBAZEPINE 300 MG TABLET PO SCH ×2 (12:49→16:41)
[2018-04-19] MEDS: GABAPENTIN 300 MG CAPSULE PO SCH ×2 (12:49→16:41)
[2018-04-19] MEDS: DIAZEPAM 10 MG TABLET PO SCH ×3 (13:44→20:08)
[2018-04-19] MEDS: BUPRENORPHINE HCL 2 MG TAB.SUBL SL SCH ×3 (13:45→20:08)
[2018-04-19 16:00] VITALS: BP 145/94
[2018-04-19 20:00] VITALS: BP 147/87
[2018-04-20] VITALS: BP 131/74
[2018-04-20 07:06] LABS: HEPATITIS B SURFACE AG Negative (Negative)
[2018-04-20 08:00] VITALS: BP 131/62
[2018-04-20] MEDS: DIAZEPAM 5 MG TABLET PO SCH ×4 (09:14→20:21)
[2018-04-20] MEDS: MULTIVITAMINS,THERAPEUTIC TABLET PO SCH (09:14)
[2018-04-20] MEDS: OXCARBAZEPINE 300 MG TABLET PO SCH ×3 (09:14→17:51)
[2018-04-20] MEDS: GABAPENTIN 300 MG CAPSULE PO SCH ×3 (09:14→17:51)
[2018-04-20] MEDS: BUPRENORPHINE HCL 2 MG TAB.SUBL SL SCH ×3 (09:15→20:21)
[2018-04-20 12:00] VITALS: BP 142/77
[2018-04-20 16:00] VITALS: BP 134/95
[2018-04-20 20:00] VITALS: BP 156/93
[2018-04-21] VITALS: BP 125/78
[2018-04-21 04:00] VITALS: BP 130/74
[2018-04-21 08:00] VITALS: BP 132/79
[2018-04-21 08:00] LABS: CREATININE 0.9 mg/dL (0.6-1.3); POTASSIUM 4.3 mmol/L (3.5-5.1)
[2018-04-21 08:16] LABS: THYROID STIMULATING HORMONE 6.191 mIU/mL (0.358-3.740)
[2018-04-21] MEDS: MULTIVITAMINS,THERAPEUTIC TABLET PO SCH (08:23)
[2018-04-21] MEDS: OXCARBAZEPINE 300 MG TABLET PO SCH ×3 (08:24→17:27)
[2018-04-21] MEDS: GABAPENTIN 300 MG CAPSULE PO SCH ×3 (08:24→17:27)
[2018-04-21] MEDS: DIAZEPAM 5 MG TABLET PO SCH ×3 (08:24→20:11)
[2018-04-21] MEDS ORDERED: BUPRENORPHINE HCL 2 MG TAB.SUBL SL SCH (09:00)
[2018-04-21 12:00] VITALS: BP 140/82
[2018-04-21] MEDS: BUPRENORPHINE HCL 2 MG TAB.SUBL SL SCH ×2 (14:04→20:12)
[2018-04-21 16:00] VITALS: BP 141/93
[2018-04-21 20:00] VITALS: BP 142/73
[2018-04-22 08:00] VITALS: BP 151/98
[2018-04-22] MEDS: MULTIVITAMINS,THERAPEUTIC TABLET PO SCH (08:23)
[2018-04-22] MEDS: GABAPENTIN 300 MG CAPSULE PO SCH ×3 (08:23→17:17)
[2018-04-22] MEDS: OXCARBAZEPINE 300 MG TABLET PO SCH ×3 (08:23→17:17)
[2018-04-22] MEDS: DIAZEPAM 5 MG TABLET PO SCH ×2 (08:23→20:35)
[2018-04-22] MEDS: BUPRENORPHINE HCL 2 MG TAB.SUBL SL SCH ×3 (08:23→20:35)
[2018-04-22 12:00] VITALS: BP 143/90
[2018-04-22] MEDS ORDERED: LORAZEPAM 1 MG TABLET PO ONE ×2 (14:45→18:45)
[2018-04-22 16:00] VITALS: BP 120/80
[2018-04-22 20:00] VITALS: BP 141/89
[2018-04-23 08:00] VITALS: BP 133/76
[2018-04-23] MEDS: GABAPENTIN 300 MG CAPSULE PO SCH ×2 (08:44→12:39)
[2018-04-23] MEDS: MULTIVITAMINS,THERAPEUTIC TABLET PO SCH (08:44)
[2018-04-23] MEDS: OXCARBAZEPINE 300 MG TABLET PO SCH ×2 (08:45→12:39)
[2018-04-23] MEDS ORDERED: BUPRENORPHINE HCL 2 MG TAB.SUBL SL SCH (09:00)
[2018-04-23] MEDS ORDERED: DIAZEPAM 5 MG TABLET PO SCH (09:00)
[2018-04-23 12:00] VITALS: BP 144/87
[2018-04-23] MEDS ORDERED: NALO4SPR NS (13:37)
== END 2018-04-23 13:45 | disposition left against medical advice (07) | DRG 894 ==
LOC: SRC 16:53
PROVIDERS: ADMIT Family Medicine Addiction Medicine; ATTEND Family Medicine Addiction Medicine
PROC: HZ2ZZZZ Detoxification Services for Substance Abuse Treatment (ICD-10-PCS; principal; 2018-04-18)
PROC: HZ41ZZZ Group Counseling for Substance Abuse Treatment, Behavioral (ICD-10-PCS; 2018-04-19)
PROC: HZ31ZZZ Individual Counseling for Substance Abuse Treatment, Behavioral (ICD-10-PCS; 2018-04-20)
DX: F11.23 Opioid dependence with withdrawal (principal); F31.60 Bipolar disorder, current episode mixed, unspecified; F14.10 Cocaine abuse, uncomplicated; F17.210 Nicotine dependence, cigarettes, uncomplicated; Z91.89 Other specified personal risk factors, not elsewhere classified; Z87.448 Personal history of other diseases of urinary system; B19.20 Unspecified viral hepatitis C without hepatic coma; Z59.0 Homelessness; Z79.899 Other long term (current) drug therapy; F41.9 Anxiety disorder, unspecified; F13.230 Sedative, hypnotic or anxiolytic dependence with withdrawal, uncomplicated; R94.6 Abnormal results of thyroid function studies; F12.90 Cannabis use, unspecified, uncomplicated
CPT/HCPCS: 36415; 70030-TC; 80307; 80349; 80361; 83735; 84443; 84481; 85025; 86592; 86705; 86803; 87340; 87806; G0480

== ENCOUNTER 2018-04-29 14:20 | Inpatient (IN) | payer BC, OTHER ==
[~2018-04-29] VITALS: Ht 182.9 cm; Wt 95.3 kg
[~2018-04-29 14:20] MED LIST changes: -BUPR-96 PO; +NALO4SPR NS; -OXCA150T5 PO; +OXCA300T4 PO
--- NOTE | 2018-04-29 16:00 | NUR ---
Pre-assessment: pt is in stable condition at this time no s/s of pain or discomfort at this time, pt is extremely flushed and moderately intoxicated. explained unit protocols and procedures and pt verbalized understanding.
[2018-04-29 16:05] VITALS: BP 128/78
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
[2018-04-29] MEDS ORDERED: MIRALAX 17 GM POWD.PACK PO PRN (17:00)
[2018-04-29] MEDS ORDERED: ACETAMINOPHEN 325 MG TABLET PO PRN (17:00)
[2018-04-29] MEDS ORDERED: 5 DAY TAPER VALIUM-SERENITY PROTOCOL PO PRN (17:00)
[2018-04-29] MEDS ORDERED: CLONIDINE HCL 0.1 MG TABLET PO PRN (17:00)
[2018-04-29] MEDS ORDERED: LORAZEPAM 1 MG TABLET PO PRN (17:00)
[2018-04-29] MEDS ORDERED: diphenhydrAMINE 50 MG CAPSULE PO PRN (17:00)
[2018-04-29] MEDS ORDERED: MAG HYDROX/AL HYDROX/SIMETH 30 ML LIQUID UDC PO PRN (17:00)
[2018-04-29] MEDS ORDERED: MAGNESIUM HYDROXIDE 30 ML LIQUID UDC PO PRN (17:00)
[2018-04-29] MEDS ORDERED: IBUPROFEN 600 MG TABLET PO PRN (17:00)
[2018-04-29] MEDS ORDERED: ONDANSETRON 4 MG/2 ML VIAL IM PRN (17:00)
[2018-04-29] MEDS ORDERED: DIAZEPAM 10 MG TABLET PO PRN ×2 (17:00)
[2018-04-29] MEDS ORDERED: ONDANSETRON ODT 4 MG TAB.RAPDIS SL PRN (17:00)
[2018-04-29] MEDS ORDERED: DIAZEPAM 5 MG TABLET PO PRN (17:00)
[2018-04-29] MEDS ORDERED: BUPRENORPHINE HCL 2 MG TAB.SUBL SL PRN (17:00)
[2018-04-29] MEDS ORDERED: HYDROXYZINE PAMOATE 25 MG CAPSULE PO PRN (17:00)
[2018-04-29] MEDS ORDERED: LOPERAMIDE HCL 2 MG CAPSULE PO PRN ×2 (17:00)
--- NOTE | 2018-04-29 17:14 | NUR ---
Re-assessment: Ianaxin Patient verbalizes relief from myalgia and rates his pain a 3 out of 10 at this time.
[2018-04-29] MEDS: DIAZEPAM 10 MG TABLET PO SCH ×2 (18:14→20:57)
[2018-04-29] MEDS: METHOCARBAMOL 750 MG TABLET PO PRN (18:14)
--- NOTE | 2018-04-29 18:14 | NUR ---
Robaxin 750 mg PO given/Subutex 4 mg SL given: patient noted with complain of 7/10 generalized myalgia and COWS of 15, due to facial flushing, bone/joint aches, chills and hot flashes. Medicated patient with Robaxin 750 mg PO and Subutex 4 mg SL as ordered. Will monitor for effectiveness.
--- NOTE | 2018-04-29 19:17 | NUR ---
End of Shift Notes: Patient started his 5-day Valium taper at 1700 and will be starting his 5-day Subutex taper as ordered. No adverse reactions noted. VS Monitored closely. No significant abnormalities noted. Withdrawal symptoms were closely monitored. Initial COWS 15/CIWA 12, patient presented with gross tremors, anxiety, facial flushing, goosebumps, restlessness, body aches, sweats and generalized discomfort. Last COWS 10/CIWA 12. Patient was given PRN Robaxin and Subutex at 1814 as ordered. Unable to participate in group and activities due to his withdrawal symptoms. Appetite good. All needs met and attended.
[2018-04-29 19:20] LABS: BASOPHILS # (AUTO) 0.1 K/uL (0.0-8.0); BASOPHILS % (AUTO) 1.1 % (0.0-2.0); EOSINOPHILS # (AUTO) 0.4 K/uL (0.0-0.7); EOSINOPHILS % (AUTO) 5.1 % (0.0-7.0); HEMATOCRIT 43.9 % (36.7-47.1); HEMOGLOBIN 15.4 g/dL (12.5-16.3); LYMPHOCYTES # (AUTO) 1.9 K/uL (20.0-40.0); LYMPHOCYTES % (AUTO) 21.8 % (20.5-51.5); MEAN CORPUSCULAR HGB CONC 35 g/dL (32.5-36.3); MEAN CORPUSCULAR VOLUME 91.5 fL (73.0-96.2); MONOCYTES # (AUTO) 0.6 K/uL (2.0-10.0); MONOCYTES % (AUTO) 7.5 % (0.0-11.0); NEUTROPHILS # (AUTO) 5.6 K/uL (1.8-8.9); NEUTROPHILS % (AUTO) 64.5 % (38.5-71.5); PLATELET COUNT (AUTO) 257 K/uL (152-348); WHITE BLOOD COUNT (AUTO) 8.6 K/uL (3.6-10.2)
[2018-04-29 19:22] LABS: ETHANOL < 3 MG/DL (0-0)
[2018-04-29 19:23] LABS: *AMPHETAMINE, URINE POSITIVE (NEGATIVE); *BARBITURATE, URINE POSITIVE (NEGATIVE); *CANNABINOID, URINE POSITIVE (NEGATIVE); *COCCAINE, URINE NEGATIVE (NEGATIVE); *OPIATE, URINE POSITIVE (NEGATIVE); *PHENCYCLIDINE SCREEN,URINE NEGATIVE (NEGATIVE)
[2018-04-29 19:23] LABS: ALANINE AMINOTRANSFERASE 55 U/L (16-63); ALKALINE PHOSPHATASE 68 U/L (50-136); ASPARTATE AMINOTRANSFERASE 38 U/L (15-37); BILIRUBIN,TOTAL 0.5 mg/dL (0.2-1.0); CARBON DIOXIDE 31 mmol/L (21-32); CHLORIDE 99 mmol/L (98-107); GLUCOSE 85 mg/dL (74-106); MAGNESIUM 2.1 mg/dL (1.8-2.4); POTASSIUM 3.8 mmol/L (3.5-5.1); TOTAL PROTEIN, SERUM 8.4 g/dL (6.4-8.2); UREA NITROGEN, BLOOD 12 mg/dL (7-18)
--- NOTE | 2018-04-29 19:30 | NUR ---
START OF SHIFT Received patient with eyes closed and even, unlabored respirations with HOB flat and bilateral side rails raised. Patient is a newly admitted 27 year old male admitted for medically supervised detox from benzos and opiates with secondary diagnoses of bipolar disorder, anxiety, depression, hepatitis C, HTN, renal failure, and a history of seizures related to withdrawal. Per endorsement, patient has started on a 5 day valium taper today and is to start on a 5 day Subutex taper in the following morning. Patient was given PRN Robaxin and Subutex for generalized myalgia and a COWS score of 15 m/b flushing, bone/joint aches, chills, and hot flashes. It was also reported that the patient has had very little or no sleep for the past 3.5 days. Last COWS score is 10 and CIWA is 12. Bed is in a low position with wheels locked. All safety measures in place. Call light is functional and within reach. Will continue to monitor.
[2018-04-29 19:54] LABS: THYROID STIMULATING HORMONE 2.116 mIU/mL (0.358-3.740)
[2018-04-29 20:00] VITALS: BP 116/62
--- NOTE | 2018-04-30 | NUR ---
VITAL SIGNS REFUSED Patient noted lying in bed with eyes closed and even, unlabored respirations. Vital signs refused. HOB flat and bilateral side rails raised. Call light is functional and within reach. All safety measures in place. Will continue to monitor.
--- NOTE | 2018-04-30 07:33 | NUR ---
END OF SHIFT Patient is noted lying in bed with eyes closed and even, unlabored respirations. Patient is a newly admitted 27 year old male admitted for medically supervised detox from benzos and opiates with secondary diagnoses of bipolar disorder, anxiety, depression, hepatitis C, HTN, renal failure, and a history of seizures related to withdrawal. During the shift, the patient remained in his room for almost the entirety of the night as he was sleeping. The patient slept for about 10 hours during the shift. No negative symptoms were reported or assessed during the shift and no PRNs given. HOB flat and bilateral side rails raised. All safety measures in place. Bed is in a low position with wheels locked. Call light is functional and within reach. Endorsed to oncoming AM nurse.
--- NOTE | 2018-04-30 07:35 | NUR ---
Start of Shift Notes: Endorsement received from night nurse. Patient is a 27 year old male admitted for BZO and opiate withdrawal who was placed on a 5-day Valium and a 5-day Subutex taper. Patient started his 5-day Valium yesterday and will be starting his 5-day Subutex taper at 0900 today. Per night report, patient slept for a total of 10 hours and was not given any PRNs. Last . Patient received in his room. Alert and oriented x 4. Verbally responsive. Denies S/I or H/I noted. No AV hallucinations noted. He is noted with facial flushing, diaphoresis, complains of chills and hot flashes, bone/joint aches, and generalized discomfort. He is noted with poor regards to hygiene. Disheveled and unkempt. Clothes thrown on the floor. Encouraged to maintain his personal hygiene and space. Educated patient on his current plan of care for the day and his medication regimen. Encouraged oral fluid intake and encouraged group participation to learn new skills to prevent relapse.
[2018-04-30 08:00] VITALS: BP 113/68
[2018-04-30] MEDS ORDERED: TUBERCULIN,PURIF.PROT.DERIV. 5 TU/0.1 ML TEST ID ONE (09:00)
[2018-04-30] MEDS ORDERED: 5 DAY TAPER BUPRENORPHINE -SERENITY PROTOCOL SL PRN (09:00)
[2018-04-30] MEDS: METHOCARBAMOL 750 MG TABLET PO PRN (09:00)
[2018-04-30] MEDS: DIAZEPAM 5 MG TABLET PO SCH ×4 (09:00→20:16)
[2018-04-30] MEDS: BUPRENORPHINE HCL 2 MG TAB.SUBL SL SCH ×4 (09:00→20:17)
[2018-04-30] MEDS: MULTIVITAMINS,THERAPEUTIC TABLET PO SCH (09:01)
--- NOTE | 2018-04-30 09:06 | NUR ---
Clonidine 0.1mg PO/Robaxin 750 mg PO given: Patient complained of chills, hot flashes, intermittent perspiration, anxiety, agitation, and 5/10 myalgia related to s/s of withdrawal. Medicated patient with Clonidine and Robaxin as ordered. Will monitor for effectiveness.
--- NOTE | 2018-04-30 10:00 | NUR ---
Re-assessment: Clonidine/Robaxin Patient verbalizes relief from anxiety, agitation, chills, hot flashes, intermittent perspiration and rates his pain a 2 out of 10 at this time. Patient states "I'm going to sleep it off today. I have not slept." PRN Clonidine and Robaxin effective.
[2018-04-30 12:00] VITALS: BP 120/79
[2018-04-30] MEDS: GABAPENTIN 300 MG CAPSULE PO SCH ×2 (12:03→17:05)
[2018-04-30] MEDS: OXCARBAZEPINE 300 MG TABLET PO SCH ×2 (12:03→17:05)
[2018-04-30 16:00] VITALS: BP 119/71
--- NOTE | 2018-04-30 18:57 | NUR ---
End of Shift Notes: Patient initiated his 5-day Subutex taper today at 0900 and continues to be on 5-day Valium taper as ordered. No adverse reactions noted. VS monitored closely. No significant abnormalities noted. Withdrawal symptoms were closely monitored. Initial COWS / 14, patient presented with facial flushing, complains of chills, hot flashes, bone/joint aches, anxiety, agitation, fatigue, restlessness, gross tremors, and generalized discomfort. Medicated patient with Clonidine and Robaxin at 0900 with help. Last COWS /. Patient verbalizes that Subutex and Valium has been effective in reducing his withdrawal symptoms. Appetite fair. Unable to participate in group and activities due to his withdrawal symptoms. All needs met and attended. Patient slept for most of the shift. Will continue to monitor.
--- NOTE | 2018-04-30 19:30 | NUR ---
START OF SHIFT Received patient awake, alert, and oriented x4 attending a group therapy session. Patient is a newly admitted 27 year old male admitted for medically supervised detox from benzos and opiates with secondary diagnoses of bipolar disorder, anxiety, depression, hepatitis C, HTN, renal failure, and a history of seizures related to withdrawal. Per endorsement patient was noted with chills, hot flashes, intermittent perspiration, anxiety, and agitation and was given Clonidine and Robaxin in the morning. These PRNs were noted to be effective. No other PRNs were administered. It was reported that the patient slept for much of the day, but is currently attending group. Upon assessment, patient reported having a 5/10 diffuse pain in his back and legs. Patient requests Motrin with his scheduled 2100 meds. Last COWS is 11 and last CIWA is 11. HOB flat and bilateral side rails raised. Bed is in a low position with wheels locked. Call light is functional and within reach. All safety measures in place. Will continue to monitor.
[2018-04-30 20:00] VITALS: BP 148/86
--- NOTE | 2018-04-30 20:17 | NUR ---
PRN MOTRIN ADMINISTRATION Patient was noted with a 5 out of 10 diffuse pain to his back and legs. PRN Motrin 600 mg given per MD orders and patient request. Will continue to monitor and reassess for effectiveness.
--- NOTE | 2018-04-30 21:17 | NUR ---
PRN MOTRIN REASSESSMENT Patient reports relief from pain in his back. The pain is now at 2 out of 10. PRN Motrin noted to be effective. Will continue to monitor.
--- NOTE | 2018-05-01 | NUR ---
VITAL SIGNS REFUSED Patient is noted lying in bed with eyes closed and even, unlabored respirations. Vital signs refused. HOB and bilateral side rails raised. Will continue to monitor.
--- NOTE | 2018-05-01 04:00 | NUR ---
VITAL SIGNS REFUSED Patient is noted lying in bed with eyes closed and even, unlabored respirations. Vital signs refused. HOB flat and bilateral side rails raised for safety. Will continue to monitor.
--- NOTE | 2018-05-01 07:19 | NUR ---
END OF SHIFT Patient is noted lying in bed with eyes closed and even, unlabored respirations. Patient is a 27 year old male admitted for medically supervised detox from benzos and opiates with secondary diagnoses of bipolar disorder, anxiety, depression, hepatitis C, HTN, renal failure, and a history of seizures related to withdrawal. During the shift, the patient reported having diffuse discomfort to his back and legs. He was also noted with anxiety, restlessness, tremors, and diaphoresis. Patient was given PRN Motrin 600 mg for pain to back and legs and was effective. Last Cows is 10 and CIWA 11 taken at 2000. Patient slept for about 7 hours during the night. HOB is flat and bilateral side rails raised. All safety measures in place. Call light is functional and within reach. Endorsed to oncoming AM nurse.
[2018-05-01 08:00] VITALS: BP 116/58
[2018-05-01 08:06] LABS: HEPATITIS B SURFACE AG Negative (Negative)
--- NOTE | 2018-05-01 08:10 | NUR ---
START OF SHIFT: Received Pt A/O X 4. He presents with apathetic mood and congruent affect. he reports he is eating and sleeping well. He c/o body aches,anxiety and irritability. He denies S/I and H/I. Subutex/Valium taper in progress to manage s/s of w/d. COWS 9 CIWA 7. Encouraged increased fluids and group attendance to promote wellness. Will continue to monitor and manage s/s of w/d.
[2018-05-01] MEDS: DIAZEPAM 5 MG TABLET PO SCH ×3 (08:50→20:11)
[2018-05-01] MEDS: GABAPENTIN 300 MG CAPSULE PO SCH ×3 (08:50→17:14)
[2018-05-01] MEDS: MULTIVITAMINS,THERAPEUTIC TABLET PO SCH (08:51)
[2018-05-01] MEDS: BUPRENORPHINE HCL 2 MG TAB.SUBL SL SCH ×3 (08:51→21:00)
[2018-05-01] MEDS: OXCARBAZEPINE 300 MG TABLET PO SCH ×3 (08:52→17:14)
[2018-05-01 12:00] VITALS: BP 126/75
--- NOTE | 2018-05-01 15:40 | NUR ---
Pt is refusing 1500 Subutex and states he is fearful of withdrawal symptoms when he comes off of it. Educated him on Subutex and explained potential consequences of refusing detox meds. Pt expressed verbal understanding.
[2018-05-01 16:00] VITALS: BP 137/82
--- NOTE | 2018-05-01 18:49 | NUR ---
END OF SHIFT: Pt continues on Subutex/Valium taper to manage s/s of w/d which include anxiety,restlessness and body aches. Last COWS 6 CIWA 9. he refused the afternoon dose of Subutex as he states he doesn't want to go through withdrawal from Subutex. Encouraged him to follow plan of care. He attended groups and interacted with peers. He was compliant with increased fluids. Will pass shift report to oncoming night nurse.
--- NOTE | 2018-05-01 19:30 | NUR ---
START OF SHIFT Patient is a 27-year-old male admitted on 04/29/18 for benzodiazepine and opiate withdrawal. Patient is currently on day 3 of a 5-day Valium taper and day 2 of a 5-day Subutex taper, tolerating well. Patient has refused his afternoon scheduled dose of Subutex and states that he does not want his 2100 Subutex either. Patient states that he would "rather not take Subutex" if he does not feel ill enough. Patient received no PRN medications today. Last COWS was 6 and last CIWA 9, per endorsement. Upon assessment, patient appears anxious and restless. Patient reports mild body aches, mild sweating and nasal congestion. Patient is on fall and seizure precautions with most recent seizure in 2008 related to withdrawal. Safety measures in place, side rails up x2, bed locked in low position, call light within reach. Will continue to monitor.
[2018-05-01 20:00] VITALS: BP 133/82
[2018-05-02] VITALS: BP 122/74
--- NOTE | 2018-05-02 04:00 | NUR ---
VITALS REFUSED Patient is irritable when disturbed during sleep, and requests not to be woken for vitals at 0400. Vitals refused at this time. Respirations even and unlabored, 16/min. Safety measures in place, side rails up x2, bed locked in low position, call light within reach. Will continue to monitor.
--- NOTE | 2018-05-02 07:00 | NUR ---
END OF SHIFT Patient is a 27-year-old male admitted on 04/29/18 for benzodiazepine and opiate withdrawal. Patient is currently on day 4 of a 5-day Valium taper and day 3 of a 5-day Subutex taper, tolerating well. Patient refused last night's dose of scheduled Subutex. Patient's last COWS was 7 and last CIWA 10. Patient received no PRN medications during the shift. Patient slept for 9 hours, total intake of 1,250mL, void x2, stool x0. Patient is on fall and seizure precautions with most recent seizure in 2008 related to withdrawal. Safety measures in place, side rails up x2, bed locked in low position, call light within reach. Will endorse to day shift.
--- NOTE | 2018-05-02 07:19 | NUR ---
Start of shift note; Received report from night nurse. Patient is a 27 year old male admitted for Benzodiazepine and Opiate withdrawal. Patient was placed on a 5 day Valium and 5 day Subutex tapers. Patient slept for 9 hours. Patient is currently asleep with eyes closed, respirations of 18 noted. Patient's last COWS score is 7 and last CIWA score is 10 per endorsement. All safety measures secured. Will continue to monitor patient.
[2018-05-02 08:00] VITALS: BP 138/82
[2018-05-02] MEDS: GABAPENTIN 300 MG CAPSULE PO SCH ×3 (08:18→16:10)
[2018-05-02] MEDS: DIAZEPAM 5 MG TABLET PO SCH ×2 (08:18→20:01)
[2018-05-02] MEDS: OXCARBAZEPINE 300 MG TABLET PO SCH ×3 (08:18→16:10)
[2018-05-02] MEDS: MULTIVITAMINS,THERAPEUTIC TABLET PO SCH (08:18)
[2018-05-02] MEDS ORDERED: BUPRENORPHINE HCL 2 MG TAB.SUBL SL SCH (09:00)
--- NOTE | 2018-05-02 09:00 | NUR ---
Medication refusal; Patient refused his Subutex dose, patient stated "I don't need Subutex, i was just here 2 weeks ago and i don't think i need Subutex". Educated patient regarding the importance of compliance to medication regime. Patient verbalized understanding. All safety measures secured. Will continue to monitor patient. Addendum: 05/02/18 at 1521 by FRANCO JAVIER RN MD was notified about patient's refusal to medication.
[2018-05-02 12:00] VITALS: BP 120/82
[2018-05-02] MEDS: BUPRENORPHINE HCL 2 MG TAB.SUBL SL SCH ×2 (14:43→20:01)
[2018-05-02 16:00] VITALS: BP 138/85
--- NOTE | 2018-05-02 18:30 | NUR ---
End of shift note; Patient is AOX4, presented with anxiety, intermittent sweats, muscle aches and stomach cramps. Patient refused Subutex doses. Patient remained on Valium taper. Patient participated in group activities and therapies. All safety measures secured. Met all needs.
--- NOTE | 2018-05-02 19:30 | NUR ---
START OF SHIFT Patient is a 27-year-old male admitted on 04/29/18 for benzodiazepine and opiate withdrawal. Patient is currently on day 4 of a 5-day Valium taper and day 3 of a 5-day Subutex taper, tolerating well. Patient has refused todays scheduled Subutex so far. Patient also did not receive any PRN medications today. Last COWS 7 and last CIWA 9 per endorsement. Upon assessment, patient appears anxious, restless, fidgety and uncomfortable. Patient reports chills and sweats along with nausea, but patient insists upon attempting to eat before taking any nausea medication. No emesis reported. Patient reports body aches and nasal congestion and is requesting tonights scheduled dose of Subutex. Patient is on fall and seizure precautions with most recent seizure about 10 years ago related to withdrawal. Safety measures in place, side rails up x2, bed locked in low position, call light within reach. Will continue to monitor.
[2018-05-02 20:00] VITALS: BP 146/89
--- NOTE | 2018-05-03 | NUR ---
VITALS REFUSED Patient refused midnight vitals. Respirations even and unlabored, 16/min. safety measures in place, side rails up x2, bed locked in low position, call light within reach. Will continue to monitor.
[2018-05-03 04:00] VITALS: BP 132/83
--- NOTE | 2018-05-03 07:15 | NUR ---
END OF SHIFT Patient is a 27-year-old male admitted on 04/29/18 for benzodiazepine and opiate withdrawal. Patient is currently on 5th day of a 5-day Valium taper and 4th day of a 5-day Subutex taper, tolerating well. Patient refused two doses of Subutex yesterday but agreed to take his evening dose due to increased symptoms of withdrawal. Patient did not receive any PRN medications during the shift. Last COWS 10 and last CIWA 10. Patient slept for 5 hours, total intake of 1,125mL, void x3, stool x0. Patient refused blood draw this morning, although liver function needs to be reassessed. Patient is on fall and seizure precautions with most recent seizure about 10 years ago related to withdrawal. Safety measures in place, side rails up x2, bed locked in low position, call light within reach. Will endorse to day shift.
[2018-05-03 08:00] VITALS: BP 137/78
--- NOTE | 2018-05-03 08:00 | NUR ---
START OF SHIFT Pt is a 27 yr old male, AA&Ox4. Pt was admitted on 04/29/18 for Benzo/Opiate withdrawal and is on 5 day Valium taper and 5 day Subutex taper as ordered. Received report from mini shifter nurse. No PRN's were given during the night. Last COWS score was 10 and CIWA score was 10. Pt slept for 5 hrs. Pt is currently c/o anxiety this morning, sweats, chills and agitation. Pt is noted with restless legs. Skin is intact, warm and moist to touch. Safety precautions observed. Will continue to monitor.
[2018-05-03] MEDS ORDERED: DIAZEPAM 5 MG TABLET PO SCH (09:00)
[2018-05-03] MEDS: BUPRENORPHINE HCL 2 MG TAB.SUBL SL SCH ×3 (09:50→20:25)
[2018-05-03] MEDS: MULTIVITAMINS,THERAPEUTIC TABLET PO SCH (09:50)
[2018-05-03] MEDS: OXCARBAZEPINE 300 MG TABLET PO SCH ×3 (09:50→16:41)
[2018-05-03] MEDS: GABAPENTIN 300 MG CAPSULE PO SCH ×3 (09:50→16:41)
[2018-05-03 12:00] VITALS: BP 147/91
[2018-05-03 16:30] VITALS: BP 132/88
--- NOTE | 2018-05-03 19:00 | NUR ---
END OF SHIFT Pt is a 27 yr old male, AA&Ox4. Pt has been observed wtih increase anxiety and agitation and constantly wanting to smoke. Pt states, "I just really anxious and stressed out". Skin is intact, warm and clammy to touch. Pt's Valium taper was extended until tomorrow morning. Last CIWA score was 7 and COWS score was 6. No PRN's were given during the day. Safety precautions observed. Call light is within reach. Will continue to monitor.
--- NOTE | 2018-05-03 19:25 | NUR ---
START OF SHIFT Patient is a 27-year-old male admitted on 04/29/18 for benzodiazepine and opiate withdrawal. Patient is currently on day 5 of a 5-day Valium taper and day 4 of a 5-day Subutex taper, tolerating well, however, MD has extended Valium taper until tomorrow as well. Patient did not receive any PRN medications today. Last COWS 6 and last CIWA 7, per endorsement. Upon assessment, patient appears anxious and restless. Patient verbalizes annoyance with inconsistent smoking schedule today stating, I dont know why the techs are so lazy, like that kenna could take us down to smoke now instead of waiting for everyone else. Patient reports increased anxiety and states, I almost left this morning but I decided to stick it out. Patient received a warning today about appropriate topics to discuss with other clients and patient has verbalize willingness to comply and abide by unit protocol. Patient is on fall and seizure precautions with most recent seizure about 10 years ago related to withdrawal. Safety measures in place, side rails up x2, bed locked in low position, call light within reach. Will continue to monitor.
[2018-05-03 20:00] VITALS: BP 142/71
[2018-05-03] MEDS: DIAZEPAM 5 MG TABLET PO SCH (20:25)
--- NOTE | 2018-05-04 | NUR ---
VITALS REFUSED Patient did not want to be disturbed while asleep, vitals refused. Respirations even and unlabored, 18/min. Safety measures in place, side rails up x2, bed locked in low position, call light within reach. Will continue to monitor.
--- NOTE | 2018-05-04 04:00 | NUR ---
VITALS REFUSED Patient refused vitals at 0400, respirations even and unlabored, 16/min. Safety measures in place, side rails up x2, bed locked in low position, call light within reach. Will continue to monitor.
--- NOTE | 2018-05-04 07:05 | NUR ---
END OF SHIFT Patient is a 27-year-old male admitted on 04/29/18 for benzodiazepine and opiate withdrawal. Patient will complete a modified 6-day Valium taper today and a 5-day Subutex taper today; he has tolerated both tapers well. Patient did not receive any PRN medications today. Last COWS 10 and last CIWA 10. Patient slept for 7 hours, total intake of 3,091mL, void x3, stool x1. Patient is on fall and seizure precautions with most recent seizure about 10 years ago related to withdrawal. Safety measures in place, side rails up x2, bed locked in low position, call light within reach. Will endorse to day shift.
[2018-05-04 08:00] VITALS: BP 145/87
--- NOTE | 2018-05-04 08:00 | NUR ---
START OF SHIFT Pt is a 27 yr old male, AA&Ox4. Pt was admitted on 04/29/18 for Benzo/Opiate withdrawal and is on an extended Valium taper and 5 day Subutex taper as ordered. Received report from material handler 2nd shift nurse. No PRN's were given during the night. Last COWS score was 10 and CIWA score was 10. Pt slept for 7 hrs. Pt states he feels "good this morning" and states he was able to sleep well during the night. Pt is observed anxious m/b difficulty staying still and restless legs. Skin is warm and clammy to touch. Pt was encouraged increase fluid intake for hydration. Safety precautions observed. Will continue to monitor.
[2018-05-04] MEDS: OXCARBAZEPINE 300 MG TABLET PO SCH ×3 (08:23→17:16)
[2018-05-04] MEDS: DIAZEPAM 5 MG TABLET PO SCH (08:23)
[2018-05-04] MEDS: GABAPENTIN 300 MG CAPSULE PO SCH ×3 (08:24→17:16)
[2018-05-04] MEDS: MULTIVITAMINS,THERAPEUTIC TABLET PO SCH (08:24)
[2018-05-04] MEDS ORDERED: BUPRENORPHINE HCL 2 MG TAB.SUBL SL SCH (09:00)
[2018-05-04 12:00] VITALS: BP 153/78
[2018-05-04] MEDS ORDERED: NALO4SPR NS (15:00)
[2018-05-04] MEDS ORDERED: GABA-534 PO (15:00)
[2018-05-04] MEDS ORDERED: OXCA300T4 PO (15:00)
[2018-05-04 16:00] VITALS: BP 140/83
--- NOTE | 2018-05-04 19:00 | NUR ---
END OF SHIFT Pt is a 27 yr old male, AA&Ox4. Pt was admitted on 04/29/18 for Benzo/Opiate withdrawal and completed a Valium taper and Subutex Taper as ordered. Medication was effective. Pt has been cooperative with medication regimen and attends group therapy. Pt was c/o anxiety and agitation but was able to cope with anxiety level. Skin was warm and clammy to touch. Pt was observed with restless legs. No PRNs were given during the day. Pt was encouraged increase fluid intake for hydration. Pt is to be discharged tomorrow to sober living. Last COWS score was 7 and CIWA score was 8 at 1600. Endorsed to power lineman nurse to continue with care.
--- NOTE | 2018-05-04 19:30 | NUR ---
START OF SHIFT Received 27 year old male patient admitted on 04/29/18 for Xanax and Heroin withdrawal. Pt is alert and oriented x4. Pt noted with restlessness and difficulty sitting still. He completed his 5 day modified Valium and 5 day Subutex taper and tolerating well. He is scheduled to be DC tomorrow to [facility]. He did not receive or request PRN medications. Last COWS:7, CIWA:8 at 1600. Breathing is even and unlabored, safety measures in place. Will continue to monitor.
[2018-05-04 20:00] VITALS: BP 144/87
--- NOTE | 2018-05-05 | NUR ---
VITALS REFUSED 0000 vitals refused. Pt lying in bed with eyes closed and is noted to be asleep. Breathing is even and unlabored, safety measures in place. Will continue to monitor.
--- NOTE | 2018-05-05 04:00 | NUR ---
VITALS REFUSED 0400 vitals refused. Pt lying in bed with eyes closed and is noted to be asleep. Breathing is even and unlabored, safety measures in place. Will continue to monitor.
--- NOTE | 2018-05-05 07:11 | NUR ---
END OF SHIFT Pt is a 27 year old male patient admitted on 04/29/18 for Xanax and Heroin withdrawal. He remains alert and oriented x4. He was noted with restlessness and difficulty sitting still during the shift. He is scheduled to be DC today to [facility]. He did not receive or request PRN medications. He slept a total of 6 hrs, Intake: 1,750mL, Void: x3, BM:x1, Last COWS:5, CIWA:6 at 2000. Breathing is even and unlabored, safety measures in place. Endorsed to AM shift.
[2018-05-05 08:21] VITALS: BP 137/88
[2018-05-05] MEDS: OXCARBAZEPINE 300 MG TABLET PO SCH (08:52)
[2018-05-05] MEDS: GABAPENTIN 300 MG CAPSULE PO SCH (08:52)
[2018-05-05] MEDS: MULTIVITAMINS,THERAPEUTIC TABLET PO SCH (08:52)
== END 2018-05-05 09:37 | disposition other institution (70) | DRG 895 ==
LOC: SRC 15:53
PROVIDERS: ADMIT Family Medicine Addiction Medicine; ATTEND Family Medicine Addiction Medicine
PROC: HZ2ZZZZ Detoxification Services for Substance Abuse Treatment (ICD-10-PCS; principal; 2018-04-29)
PROC: HZ41ZZZ Group Counseling for Substance Abuse Treatment, Behavioral (ICD-10-PCS; 2018-05-01)
PROC: HZ31ZZZ Individual Counseling for Substance Abuse Treatment, Behavioral (ICD-10-PCS; 2018-05-03)
DX: F11.23 Opioid dependence with withdrawal (principal); F31.60 Bipolar disorder, current episode mixed, unspecified; N17.9 Acute kidney failure, unspecified; F13.230 Sedative, hypnotic or anxiolytic dependence with withdrawal, uncomplicated; F15.23 Other stimulant dependence with withdrawal; F17.210 Nicotine dependence, cigarettes, uncomplicated; Z59.0 Homelessness; B19.20 Unspecified viral hepatitis C without hepatic coma; G47.00 Insomnia, unspecified; Z91.013 Allergy to seafood; Z81.1 Family history of alcohol abuse and dependence; Z79.899 Other long term (current) drug therapy; F41.9 Anxiety disorder, unspecified; F14.90 Cocaine use, unspecified, uncomplicated
CPT/HCPCS: 36415; 70030-TC; 80307; 80324; 80345; 80346; 80349; 80361; 83735; 84443; 85025; 86592; 86705; 86803; 87340; 87806; A4663; G0480